=== PATIENT | female | born 1950 | race Caucasian/White ===

== ENCOUNTER → 2016-12-06 | Outpatient (CLI) | payer MEDICARE ==
[~2016-12-06] MED LIST: ACETAMINOPHEN &1 TA1 PO; AEROSOL THERAPY1 DEV XX; ALBUTEROL2 PUFFS/17 IN; ALBUTEROL2.5 MG/NEB INH; ALDACTONE 25MG25 MG PO; AMITRIPTYLINE150 MG PO; BENTYL20 MG PO; BENZONATATE200 MG PO; CEFDINIR 300MG300 MG PO; CELEBREX200 MG PO; CREAMS; CYMBALTA60 MG PO; DIAZEPAM5 MG PO; DOXYCYCLINE100 M6 PO; FIORINAL CAPSU1 EACH PO; HYDROCODONE/ACE1 TA5 PO; HYDROCORTI30 GM/TUB3 EX; INDAPAMIDE2.5 MG PO; LORTAB 500 MG-11 TAB PO; MAXZIDE 25 MG-31 TA1 PO; MEDROL 4MG. DOSE4 MG PO; MENTAX TP; METHYLPRED DP4 MG PO; NEURONTIN600 M1 PO; NORCO 325 MG-101 TAB PO; REQUIP1 MG PO; RESTORIL 30MG C30 MG PO; SALMETEROL-F28 PUFFS IN; SIMVASTATIN40 MG PO; SINGULAIR10 MG PO; SYNTHROID 0.0.125 MG PO; SYNTHROID0.075 MG PO; TERAZOL VG; WESTCORT 0.2% C15 GM TP; ZANTAC 150150 MG PO
[2016-12-06 13:41] LABS: BUN 15 mg/dL (7-18)
[2016-12-06 13:59] LABS: GFR (ESTIMATED) 72 ML/MIN (59-)
== END ==
LOC: LAB 09:35
PROVIDERS: Nurse Practitioner Family
DX: C82.94 Follicular lymphoma, unspecified, lymph nodes of axilla and upper limb (principal)

== ENCOUNTER → 2017-06-05 | Outpatient (CLI) | payer MEDICARE ==
--- NOTE | 2017-06-08 08:09 | RADIOLOGY REPORT PS360 ---
NUC BONE SCAN-WHOLE BODY-TBB HISTORY: Lymphoma, adenopathy LYMPHOMA ORDERING PHYSICIAN: Tino Billingsley MD PATIENT AGE: 66 years DOSE: 26.7 mCi technetium MDP COMPARISON: CT scan of 06/02/2017 FINDINGS: Increased activity is present in the frontal bone consistent with hyperostosis frontalis interna. Multiple levels of increased activity are present in the thoracic spine at the costovertebral junction. As felt to be due to arthritic changes with hypertrophy of the ribs noted at the costovertebral junction on the CT scan and multilevel osteophytes. There is increased activity also at the L2-L3 region where there is degenerative disc disease on the CT scan and facet arthropathy also causes increased activity in the lower lumbar spine. Increased activity in the feet and ankles likely related to arthritic change. Increased activity is present at the junction of the manubrium and body of the sternum. There are some degenerative changes at this area on the CT scan. No other significant anomalies evident. IMPRESSION: 1. No convincing evidence of skeletal metastatic disease. 2. Degenerative changes
== END ==
LOC: RAD 10:44
DX: C82.90 Follicular lymphoma, unspecified, unspecified site (principal)
CPT/HCPCS: A9503

== ENCOUNTER → 2017-09-03 | Outpatient (CLI) | payer MEDICARE ==
--- NOTE | 2017-09-03 18:16 | RADIOLOGY REPORT PS360 ---
FOOT-LT-3 VIEWS HISTORY: LEFT FOOT PAIN, NO INJURY ORDERING PHYSICIAN: MAURICIO NOVAK APRN PATIENT AGE: 66 years COMPARISON: None FINDINGS: There is moderate coxa valga is with severe osteoarthritis of the first metatarsophalangeal joint with prominent osteophyte formation. No acute fracture or dislocation. There are some hypertrophic changes along the dorsal aspect of the distal talus. IMPRESSION: Moderate hallux valgus with severe osteoarthritis of the first metatarsophalangeal joint
== END ==
LOC: RAD 16:55
DX: M79.672 Pain in left foot (principal)